=== PATIENT | female | born 2000 | race Caucasian/White ===

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

== ENCOUNTER 2018-05-09 17:47 | Inpatient (IN) ==
[~2018-05-09 17:47] MED LIST changes: +Diphtheria/Tetanus/Pertussis Vaccine Inj 0.5 ML Syringe IM ONE; -MACR100C2 PO; +Measles/Mumps/Rubella Vaccine Inj 0.5 ML Vial SQ ONE; +Varicella Vaccine Live 1350 UNITS/0.5 ML Vial SQ ONE
[2018-05-09] MEDS ORDERED: Naloxone Inj 0.4 MG/ML Vial IV.PUSH PRN ×2 (18:15→19:28)
[2018-05-09] MEDS ORDERED: Sodium Chlor 0.9% Inj 500 ML IV.SIG PRN (18:15)
[2018-05-09] MEDS ORDERED: Oxytocin 30 Units/500ml Premix 30 UNITS/500 ML BAG IV.SIG ONE (18:15)
[2018-05-09] MEDS ORDERED: fentaNYL Citrate Inj 100 MCG/2 ML Ampul IV.PUSH PRN ×2 (18:15)
[2018-05-09] MEDS ORDERED: Citric Acid/Sodium Citrate Liq 30 ML UDC PO SCH (18:15)
[2018-05-09] MEDS ORDERED: Sod Chloride 0.9% Inj 1,000 ML IV.CONT PRN (18:15)
--- NOTE | 2018-05-09 18:21 | P.HPOB ---
History of Present Illness Primary Care Physician: No Primary Care Physician Dr. Stewart Chief Complaint: Contractions History of Present Illness: Patient is a 18-year-old white female at [address] Stewart for care presents complaining of regular painful contractions. She has no leakage of fluid is having some minimal red spotting, NST is reactive she is nixon every 2 minutes Weeks Gestation:: 38 Para: 1 : 2 Review of Systems All other systems reviewed negative except as stated in HPI PMFSH - Tobacco History Second Hand Smoke Exposure: No Smoking Status: Never smoker - Alcohol History How Often Do You Have a Drink Containing Alcohol: Never - Substance Use History Substance History: No History of Abuse - Travel History History of Recent Travel: No Recent Travel in the [place] Within the Last 8 Weeks: No Recent Travel Out of the Country Within the Last 8 Weeks: No Medications and Allergies Allergies Allergy/AdvReac Type Severity Reaction Status Date / Time ANT BITES Allergy Severe Anaphylaxis Uncoded 04/18/14 18:17 Exam Vital signs: Vital Signs 05/09/18 18:17 Temperature 98.2 F Narrative: GENERAL: Well-nourished, well-developed patient. SKIN: Warm and dry. HEAD: Normocephalic and atraumatic. EYES: No scleral icterus. No injection or drainage. ENT: No nasal drainage noted. Mucous membranes pink. Airway patent. NECK: Supple, trachea midline. No JVD. CARDIOVASCULAR: Regular rate and rhythm without murmurs, gallops, or rubs. RESPIRATORY: Breath sounds equal bilaterally. No accessory muscle use. BREASTS: Bilateral exam showed no masses , no retractions, no nipple discharge. ABDOMEN/GI: Abdomen soft, non-tender, bowel sounds present, no rebound, no guarding Gravid to [-38] weeks size Fundal Height: [-38] GENITOURINARY: External Genitalia: intact and normal in appearance BUS glands: [-] Cervix: [mid-] Dilatation: [-5] Effacement: [100-] Station: [-1] Presentation: [-vtx] Membranes: [intact Uterine Contractions: [-q 2 min] FHT's: Category: [1-] Baseline: [144-] Reactive: [R-] Variability: [mod-] Decels: [-0] + accels EXTREMITIES: No cyanosis or edema. BACK: Nontender without obvious deformity. No CVA tenderness. NEUROLOGICAL: Awake and alert. Motor and sensory grossly within normal limits. Five out of 5 muscle strength in all muscle groups. Normal speech. Results - Labs Group B Strep: Negative Caprini VTE Risk Assessment Caprini VTE Risk Assessment: No/Low Risk (score <= 1) Caprini Risk Assessment Model: Point Value = 1 Point Value = 2 Point Value = 3 Point Value = 5 Age 41-60 Minor surgery BMI > 25 kg/m2 Swollen legs Varicose veins or History of unexplained or recurrent spontaneous Oral contraceptives or hormone replacement Sepsis (< 1 month) Serious lung disease, including pneumonia (< 1 month) Abnormal pulmonary function Acute myocardial infarction Congestive heart failure (< 1 month) History of inflammatory bowel disease Medical patient at bed rest Age 61-74 Arthroscopic surgery Major open surgery (> 45 min) Laparoscopic surgery (> 45 min) Malignancy Confined to bed (> 72 hours) Immobilizing plaster cast Central venous access Age >= 75 History of VTE Family history of VTE Factor V Leiden Prothrombin [id number] Lupus anticoagulant Anticardiolipin antibodies Elevated serum homocysteine Heparin-induced thrombocytopenia Other congenital or acquired thrombophilia Stroke (< 1 month) Elective arthroplasty Hip, pelvis, or leg fracture Acute spinal cord injury (< 1 month) Prophylaxis Regimen: Total Risk Factor Score Risk Level Prophylaxis Regimen 0-1 Low Early ambulation 2 Moderate Order ONE of the following: *Sequential Compression Device (SCD) *Heparin 5000 units SQ BID 3-4 Higher Order ONE of the following medications: *Heparin 5000 units SQ TID *Enoxaparin/Lovenox 40 mg SQ daily (WT < 150 kg, CrCl > 30 mL/min) *Enoxaparin/Lovenox 30 mg SQ daily (WT < 150 kg, CrCl > 10-29 mL/min) *Enoxaparin/Lovenox 30 mg SQ BID (WT < 150 kg, CrCl > 30 mL/min) AND/OR *Sequential Compression Device (SCD) 5 or more Highest Order ONE of the following medications: *Heparin 5000 units SQ TID (Preferred with Epidurals) *Enoxaparin/Lovenox 40 mg SQ daily (WT < 150 kg, CrCl > 30 mL/min) *Enoxaparin/Lovenox 30 mg SQ daily (WT < 150 kg, CrCl > 10-29 mL/min) *Enoxaparin/Lovenox 30 mg SQ BID (WT < 150 kg, CrCl > 30 mL/min) AND *Sequential Compression Device (SCD) Assessment and Plan - Diagnosis (1) 38 weeks gestation of Code(s): Z3A.38 - 38 weeks gestation of Status: Acute (2) Uterine contractions during Code(s): O62.2 - Other uterine inertia Status: Acute - Plan This multiparous patient at 38 weeks is in active labor at this time, cervix is 5/1 100/-1/cephalic with bulging amniotic sac. Contractions are regular. Plan to admit the patient to labor and delivery, manage labor probably, and augment as needed as needed and notify her OB doctor.
[2018-05-09] MEDS ORDERED: Lidocaine 1% Inj 50 ML Vial ONE (19:02)
[2018-05-09 19:09] LABS: Baso % (Auto) 0.4 % (0.0-2.0); Eos # (Auto) 0.1 th/mm3 (0.0-0.4); Eos % (Auto) 0.6 % (0.0-4.0); Hematocrit 33.8 % (35.0-46.0); Hemoglobin 10.9 gm/dL (11.6-15.3); Lymph % (Auto) 23.1 % (9.0-44.0); Mean Corpuscular HGB Conc 32.4 % (32.0-36.0); Mean Corpuscular Hemoglobin 23.9 pg (27.0-34.0); Mean Corpuscular Volume 73.8 fL (80.0-100.0); Mean Platelet Volume 8.8 fL (7.0-11.0); Mono # (Auto) 1.1 th/mm3 (0.0-0.9); Mono % (Auto) 8.3 % (0.0-8.0); Neut # (Auto) 8.8 th/mm3 (1.8-7.7); Neut % (Auto) 67.6 % (16.0-70.0); Platelet Count 319 th/mm3 (150-450); Red Blood Count 4.58 mil/mm3 (4.00-5.30); Red Cell Distribution Width 15.5 % (11.6-17.2); White Blood Count 13.1 th/mm3 (4.0-11.0)
[2018-05-09] MEDS ORDERED: Bisacodyl 10 MG Supp RECTAL PRN (19:28)
[2018-05-09] MEDS ORDERED: Acetaminophen 325 MG Tablet PO PRN (19:28)
[2018-05-09] MEDS ORDERED: Zolpidem Tartrate 5 MG Tablet PO PRN (19:28)
[2018-05-09] MEDS ORDERED: Oxytocin 30 Units/500ml Premix 30 UNITS/500 ML BAG IV.CONT PRN (19:28)
[2018-05-09] MEDS ORDERED: Witch Hazel 50%/Glyderin 12.5% 40 Pad Jar RECTAL PRN (19:28)
[2018-05-09] MEDS ORDERED: Benzocaine 20% Top Spray 60 ML Can TOPICAL PRN (19:28)
--- NOTE | 2018-05-09 19:34 | P.OBDELI ---
Weeks Gestation: 38 Patient Started Active Labor: Yes Active Labor Start Date: 05/09/18 Medical Induction of Labor: No Artificial Rupture of Membrane: Yes Artificial ROM Date: 05/09/18 Anesthesia: None Episiotomy: none Vaginal Delivery: Normal Nuchal Cord: None Delayed Cord Clamping (45 sec): No Shoulder Dystocia: Lambert maneuver done Placenta: Spontaneous delivery, Intact, 3 vessel cord Laceration: None Estimated blood loss (mL): 300 : Male Infant Male A score (1 min): 8 score (5 min): 8 (Very fast delivery of baby Henri. Baby was blue and required CPAP and was transported to the NICU. Baby stressed due to the very precipitous delivery.)
--- NOTE | 2018-05-09 19:36 | P.OBDELI ---
Weeks Gestation: 38
[2018-05-09] MEDS ORDERED: Ketorolac Inj 30 MG/ML (IVP) Vial IV.PUSH ONE (21:28)
[2018-05-10] MEDS: Prenatal Vit/Ca/Iron/Folic Acid Tablet PO SCH ×2 (08:21→14:56)
[2018-05-10] MEDS: Senna/Docusate Sodium 8.6/50 MG Tablet PO SCH ×3 (08:22→22:46)
--- NOTE | 2018-05-10 09:20 | P.PNOB ---
Subjective Post day: 1 Objective Vital Signs/I&O: Vital Signs 05/09/18 18:17 05/09/18 18:30 05/09/18 19:29 Temperature 98.2 F Pulse Rate 97 H Respiratory Rate 20 Blood Pressure 124/76 119/55 L 05/09/18 19:30 05/09/18 20:01 05/09/18 20:18 Temperature Pulse Rate 108 H 65 Respiratory Rate 18 18 18 Blood Pressure 122/81 133/88 05/09/18 20:31 05/09/18 21:19 05/09/18 21:31 Temperature Pulse Rate 80 78 65 Respiratory Rate 18 Blood Pressure 115/68 138/73 126/64 05/09/18 21:43 05/09/18 21:49 05/09/18 22:01 Temperature 98.1 F Pulse Rate 77 98 H Respiratory Rate 18 16 Blood Pressure 115/78 106/86 05/09/18 22:30 05/10/18 08:00 Temperature 97.5 F L 98.5 F Pulse Rate 83 60 Respiratory Rate 18 20 Blood Pressure 119/72 109/63 Intake & Output 05/09/18 05/10/18 05/10/18 18:59 06:59 18:59 Weight 71.214 kg Result Diagrams: 05/09/18 18:23 Objective Remarks: GENERAL: Well-nourished, well-developed patient. CARDIOVASCULAR: Regular rate and rhythm without murmurs, gallops, or rubs. RESPIRATORY: Breath sounds equal bilaterally. No accessory muscle use. ABDOMEN/GI: Abdomen soft, non-tender. Fundus: Firm, non-tender at umbilicus. GENITOURINARY: Light to moderate bleeding. EXTREMITIES: No cyanosis or edema, non-tender, without signs of DVT. Medications and IVs: Active Medications Acetaminophen (Tylenol) 650 mg PO Q4H PRN PRN Reason: PAIN SCALE 1 TO 2 Al Hydroxide/Mg Hydroxide (Milk Of Magnesia Liq) 30 ml PO Q12H PRN PRN Reason: Mild Constipation Benzocaine (Americaine 20% Top Mcder[place]) 1 spray TOPICAL Q4H PRN PRN Reason: For Perineum Discomfort Bisacodyl (Dulcolax Supp) 10 mg RECTAL DAILY PRN PRN Reason: SEVERE CONSITIPATION Oxytocin (Pitocin 30 Units/Ns 500 Ml Premix) 30 units in 500 mls @ 100 mls/hr IV.CONT UNSCH PRN PRN Reason: Heavy bleeding Ibuprofen (Motrin) 800 mg PO Q8H PRN PRN Reason: For Cramping Last Admin: 05/10/18 05:32 Dose: 800 mg Lactulose (Lactulose Liq) 30 ml PO DAILY PRN PRN Reason: SEVERE CONSITIPATION Naloxone HCl (Narcan Inj) 0.1 mg IV.PUSH Q2M PRN PRN Reason: for opiate reversal Ondansetron HCl (Zofran Odt) 4 mg PO Q6H PRN PRN Reason: NAUSEA OR VOMITING Oxycodone/Acetaminophen (Percocet 5/325 Mg) 1 tab PO Q4H PRN PRN Reason: PAIN SCALE 3 TO 5 Vit/Calcium/Iron/Folic Ac (Stuartnatal Plus 3) 1 tab PO DAILY [facility] Last Admin: 05/10/18 08:21 Dose: 1 tab Senna/Docusate Sodium (Linnea-Colace) 1 tab PO BID [facility] Last Admin: 05/10/18 08:22 Dose: 1 tab Sennosides (Senokot) 17.2 mg PO Q12H PRN PRN Reason: Moderate Constipation Sodium Chloride (Ns Flush) 2 ml IV.FLUSH BID [facility] Last Admin: 05/09/18 21:35 Dose: Not Given Sodium Chloride (Ns Flush) 2 ml IV.FLUSH PRN PRN PRN Reason: FLUSH AFTER USING IV ACCESS Witch Radha/Glycerin (Tucks Pads) 1 applicatio RECTAL QID PRN PRN Reason: HEMORRHOIDS Zolpidem Tartrate (Ambien) 5 mg PO HS PRN PRN Reason: SLEEP Assessment and Plan - Plan PPD #1 pt doing well pain well managed with oral medication baby in [place] and stable per patient routine care Discharge Planning: dc home tomorrow
--- NOTE | 2018-05-10 09:25 | P.DS ---
Date of admission: 05/09/18 18:17 Primary care physician: Levi Rod MD Attending physician on discharge: Arnel Stewart Anticipated date of discharge: 05/11/18 Brief History from admission: Patient is a 18-year-old white female at [address] Stewart for care presents complaining of regular painful contractions. She has no leakage of fluid is having some minimal red spotting, NST is reactive she is nixon every 2 minutes DS: Diagnosis - Discharge Diagnosis (1) (normal spontaneous vaginal delivery) Status: Acute DS: Summary Hospital Course: term , admitted for labor, , routine care - Time Spent with Patient Total time spent providing and/or coordinating discharge services: Less than 30 minutes Exam Vital signs: Vital Signs 05/09/18 18:17 05/09/18 18:30 05/09/18 19:29 Temperature 98.2 F Pulse Rate 97 H Respiratory Rate 20 Blood Pressure 124/76 119/55 L 05/09/18 19:30 05/09/18 20:01 05/09/18 20:18 Temperature Pulse Rate 108 H 65 Respiratory Rate 18 18 18 Blood Pressure 122/81 133/88 05/09/18 20:31 05/09/18 21:19 05/09/18 21:31 Temperature Pulse Rate 80 78 65 Respiratory Rate 18 Blood Pressure 115/68 138/73 126/64 05/09/18 21:43 05/09/18 21:49 05/09/18 22:01 Temperature 98.1 F Pulse Rate 77 98 H Respiratory Rate 18 16 Blood Pressure 115/78 106/86 05/09/18 22:30 05/10/18 08:00 Temperature 97.5 F L 98.5 F Pulse Rate 83 60 Respiratory Rate 18 20 Blood Pressure 119/72 109/63 Intake & Output 05/09/18 05/10/18 05/10/18 18:59 06:59 18:59 Weight 71.214 kg Narrative: see post note Results Procedures completed during hospitalization: Labs on day of discharge: Labs from last 24 hours 05/09/18 05/09/18 05/09/18 18:23 18:23 18:07 WBC 13.1 H RBC 4.58 Hgb 10.9 L Hct 33.8 L MCV 73.8 L MCH 23.9 L MCHC 32.4 RDW 15.5 Plt Count 319 MPV 8.8 Neut % (Auto) 67.6 Lymph % (Auto) 23.1 [place] % (Auto) 8.3 H Eos % (Auto) 0.6 Baso % (Auto) 0.4 Neut # (Auto) 8.8 H Lymph # (Auto) 3.0 [place] # (Auto) 1.1 H Eos # (Auto) 0.1 Baso # (Auto) 0.0 WBC Differential . Differential Comment Auto diff final POC Urine Opiates POC Urine Buprenorphine Ur Heroin Screen Pending POC Urine Oxycodone POC Urine Methadone U Hydromorphone Confirm Pending Urine Fentanyl Pending POC Urine Barbiturates Urine Gabapentin Pending POC Urine PCP POC Ur Amphetamines POC Ur Methamphetamine POC Urine MDMA POC Ur Benzodiazepine POC Urine Cocaine POC Ur Marijuana (THC) Blood Type O Positive 05/09/18 18:07 WBC RBC Hgb Hct MCV MCH MCHC RDW Plt Count MPV Neut % (Auto) Lymph % (Auto) [place] % (Auto) Eos % (Auto) Baso % (Auto) Neut # (Auto) Lymph # (Auto) [place] # (Auto) Eos # (Auto) Baso # (Auto) WBC Differential Differential Comment POC Urine Opiates Negative POC Urine Buprenorphine Negative Ur Heroin Screen POC Urine Oxycodone Negative POC Urine Methadone Negative U Hydromorphone Confirm Urine Fentanyl POC Urine Barbiturates Negative Urine Gabapentin POC Urine PCP Negative POC Ur Amphetamines Negative POC Ur Methamphetamine Negative POC Urine MDMA Negative POC Ur Benzodiazepine Negative POC Urine Cocaine Negative POC Ur Marijuana (THC) Negative Blood Type Discharge Plan - Discharge Disposition Patient Disposition: 01 Discharge Home - Discharge Condition Condition: Good - Discharge Order Discharge Orders: Discharge Order (Routine); Ordered 05/11/18 Ordered By: Marielos David HOUSING INSPECTOR Clear for Discharge (Routine); Ordered 05/11/18 Ordered By: Marielos David - Discharge Details Anticipated Discharge Date: 05/10/18 - Physicians Team Primary Care Provider: Levi Rod Attending Provider: Arnel Stewart
[2018-05-11 08:16] VITALS: BP 108/55; PULSE 71; RESP 20; TEMP 97.9
--- NOTE | 2018-05-11 09:07 | P.PNOB ---
Subjective Post day: 2 Objective Vital Signs/I&O: Vital Signs 05/10/18 20:00 05/11/18 08:00 Temperature 98.1 F 97.9 F Pulse Rate 64 71 Respiratory Rate 18 20 Blood Pressure 107/81 108/55 L Result Diagrams: 05/09/18 18:23 Objective Remarks: GENERAL: Well-nourished, well-developed patient. CARDIOVASCULAR: Regular rate and rhythm without murmurs, gallops, or rubs. RESPIRATORY: Breath sounds equal bilaterally. No accessory muscle use. ABDOMEN/GI: Abdomen soft, non-tender. Fundus: Firm, non-tender at umbilicus. GENITOURINARY: Light to moderate bleeding. EXTREMITIES: No cyanosis or edema, non-tender, without signs of DVT. Medications and IVs: Active Medications Acetaminophen (Tylenol) 650 mg PO Q4H PRN PRN Reason: PAIN SCALE 1 TO 2 Last Admin: 05/10/18 13:20 Dose: 650 mg Al Hydroxide/Mg Hydroxide (Milk Of Magnesia Liq) 30 ml PO Q12H PRN PRN Reason: Mild Constipation Benzocaine (Americaine 20% [place]) 1 spray TOPICAL Q4H PRN PRN Reason: For Perineum Discomfort Bisacodyl (Dulcolax Supp) 10 mg RECTAL DAILY PRN PRN Reason: SEVERE CONSITIPATION Oxytocin (Pitocin 30 Units/Ns 500 Ml Premix) 30 units in 500 mls @ 100 mls/hr IV.CONT UNSCH PRN PRN Reason: Heavy bleeding Ibuprofen (Motrin) 800 mg PO Q8H PRN PRN Reason: For Cramping Last Admin: 05/11/18 04:20 Dose: 800 mg Lactulose (Lactulose Liq) 30 ml PO DAILY PRN PRN Reason: SEVERE CONSITIPATION Naloxone HCl (Narcan Inj) 0.1 mg IV.PUSH Q2M PRN PRN Reason: for opiate reversal Ondansetron HCl (Zofran Odt) 4 mg PO Q6H PRN PRN Reason: NAUSEA OR VOMITING Oxycodone/Acetaminophen (Percocet 5/325 Mg) 1 tab PO Q4H PRN PRN Reason: PAIN SCALE 3 TO 5 Vit/Calcium/Iron/Folic Ac (Stuartnatal Plus 3) 1 tab PO DAILY KEVIN Last Admin: 05/10/18 14:56 Dose: Not Given Senna/Docusate Sodium (Linnea-Colace) 1 tab PO BID [facility] Last Admin: 05/10/18 22:46 Dose: 1 tab Sennosides (Senokot) 17.2 mg PO Q12H PRN PRN Reason: Moderate Constipation Sodium Chloride (Ns Flush) 2 ml IV.FLUSH BID [facility] Last Admin: 05/10/18 22:47 Dose: Not Given Sodium Chloride (Ns Flush) 2 ml IV.FLUSH PRN PRN PRN Reason: FLUSH AFTER USING IV ACCESS Witch Radha/Glycerin (Tucks Pads) 1 applicatio RECTAL QID PRN PRN Reason: HEMORRHOIDS Zolpidem Tartrate (Ambien) 5 mg PO HS PRN PRN Reason: SLEEP Assessment and Plan - Diagnosis (1) (normal spontaneous vaginal delivery) Code(s): O80 - Encounter for full-term uncomplicated delivery Status: Acute - Plan PPD #2 pt doing well pain well managed with oral medication baby doing well and in the room routine care Discharge Planning: dc home today
[2018-05-11] MEDS: Prenatal Vit/Ca/Iron/Folic Acid Tablet PO SCH (09:29)
[2018-05-11] MEDS: Senna/Docusate Sodium 8.6/50 MG Tablet PO SCH (09:29)
== END 2018-05-11 12:20 | disposition home or self-care (01) ==
LOC: HOBED 17:47 → H2E 18:17 → H1EA 18:25
PROVIDERS: ADMIT Obstetrics & Gynecology; ATTEND Obstetrics & Gynecology